=== PATIENT | male | born 1990 | race Caucasian/White ===

== ENCOUNTER 2018-12-22 13:41 | Emergency (ER) | payer SELFPAY ==
[2018-12-22 13:48] VITALS: RESP 18
[2018-12-22] MEDS ORDERED: Sodium Chloride 0.9% 1,000 ML IV ONE (14:40)
--- NOTE | 2018-12-22 14:40 | C.PDOC ---
History Of Present Illness 28 year old male presents to the ED for evaluation of possible food poisoning associated with multiple episodes of vomiting since last night. The patient reports he had a dish with head lobster with butter, notes that excess fatty f oods cause GI upset. Denies fever, chills, diarrhea, abdominal pain, and any other associated symptoms. Time Seen by Provider: 12/22/18 14:12 Chief Complaint (Nursing): Abdominal Pain History Per: Patient History/Exam Limitations: no limitations Onset/Duration Of Symptoms: Hrs Current Symptoms Are (Timing): Still Present Associated Symptoms: Vomiting. denies: Fever, Chills Exacerbating Factors: Food Recent travel outside of the [place]: No Past Medical History Reviewed: Historical Data, Nursing Documentation, Vital Signs Vital Signs: Last Vital Signs Temp 99.1 F 12/22/18 13:46 Pulse 78 12/22/18 13:46 Resp 18 12/22/18 13:46 BP 150/90 12/22/18 13:46 Pulse Ox 99 12/22/18 13:46 Family History: States: Unknown Family Hx - Social History Hx Tobacco Use: No Hx Alcohol Use: Yes Hx Substance Use: Yes (marijuana) - Immunization History Hx Tetanus Toxoid Vaccination: No Hx Influenza Vaccination: No Hx Pneumococcal Vaccination: No Review Of Systems Except As Marked, All Systems Reviewed And Found Negative. Constitutional: Negative for: Fever, Chills Gastrointestinal: Positive for: Vomiting. Negative for: Diarrhea Physical Exam - Physical Exam Appears: Non-toxic, No Acute Distress Skin: Normal Color, Warm, Dry Head: Atraumatic, Normacephalic Eye(s): bilateral: Normal Inspection, Other (anicteric. ) Oral Mucosa: Moist Neck: Normal ROM Chest: Symmetrical, No Deformity Cardiovascular: Rhythm Regular, No Murmur Respiratory: Normal Breath Sounds, No Rales, No Rhonchi, No Wheezing, No Other (NARD ) Gastrointestinal/Abdominal: Normal Exam, Soft, No Tenderness Extremity: Bilateral: Atraumatic, Normal Color And Temperature Neurological/Psych: Oriented x3, Normal Speech, Normal Cognition ED Course And Treatment - Laboratory Results Result Diagrams: 12/22/18 15:00 12/22/18 15:00 O2 Sat by Pulse Oximetry: 99 (RA) Pulse Ox Interpretation: Normal Medical Decision Making Medical Decision Making: Initial plan: -Blood sent -Zofran Progress/Update: Patient notes feeling better. Stable for discharge home. Prescribed Zofran and advised to follow-up with PMD. Disposition Counseled Patient/Family Regarding: Studies Performed, Diagnosis, Need For Followup, Rx Given - Disposition Referrals: [facility] [Outside] [facility] [Outside] [facility] [Other] Disposition: HOME/ ROUTINE Disposition Time: 15:42 Condition: IMPROVED Prescriptions: Ondansetron ODT [Zofran ODT] 4 mg PO TID PRN #12 odt PRN Reason: Nausea/Vomiting Instructions: Nausea and Vomiting, Adult (DC) Forms: Access Information Management (Palestinian) - Clinical Impression Clinical Impression: Vomiting - Scribe Statement The provider has reviewed the documentation as recorded by the Scribe (Katiuska La) Provider Attestation: All medical record entries made by the Scribe were at my direction and personally dictated by me. I have reviewed the chart and agree that the record accurately reflects my personal performance of the history, physical exam, medical decision making, and the department course for this patient. I have also personally directed, reviewed, and agree with the discharge instructions and disposition.
[2018-12-22 15:03] LABS: MEAN CORPUSCULAR HEMOGLOBIN 29.6 pg (27.0-31.0); MEAN CORPUSCULAR HGB CONC 33.2 g/dL (33.0-37.0); MEAN PLATELET VOLUME 7.7 fL (7.2-11.7); RBC 5.06 Mil/uL (4.40-5.90); RED CELL DISTRIBUTION WIDTH 14.1 % (11.5-14.5); WHITE BLOOD COUNT 11.1 K/uL (4.8-10.8)
[2018-12-22 15:33] LABS: BLOOD UREA NITROGEN 19 mg/dL (9-20); CALCIUM 9.6 mg/dl (8.6-10.4); GFR NON-AFRICAN AMERICAN > 60
[2018-12-22 16:04] VITALS: BP 128/77; PULSE 70; TEMP 98.3
[2018-12-22 18:06] VITALS: O2SAT 99
== END 2018-12-22 16:08 | disposition home or self-care (01) ==
LOC: C.ER 13:41
DX: R11.10 Vomiting, unspecified (principal)
CPT/HCPCS: 80048; 85027; 96361; 96374; 99284; J2405; J7030